=== PATIENT | male | born 1940 | race Caucasian/White ===

== ENCOUNTER 2022-01-16 06:59 | Day surgery (SDC) | payer BC ==
[~2022-01-16] VITALS: Ht 185.4 cm; Wt 88.5 kg
[2022-01-16] MEDS ORDERED: CLINDAMYCIN PHOS 600 MG/ D5W 50 ML PREMIX IV ONE (09:45)
[2022-01-16] MEDS ORDERED: CEFAZOLIN SOD 2 GM in D5W 50 ML IV ONE (09:45)
[2022-01-16] MEDS ORDERED: NS IRRIG SOLN 1000 ML IR ONE (12:35)
[2022-01-16] MEDS ORDERED: ROCURONIUM BROMIDE 10 MG/ML (ZEMURON) ONE (12:35)
[2022-01-16] MEDS ORDERED: SEVOFLURANE 15 MIN GAS INH ONE (12:35)
[2022-01-16] MEDS ORDERED: ETOMIDATE 20 MG/ 10 ML VIAL (AMIDATE) ONE (12:35)
[2022-01-16] MEDS ORDERED: LR 1,000 ML IV.SOLN IV ONE (12:35)
[2022-01-16] MEDS ORDERED: [UNRECOGNIZED DRUG - OTHER] INJ ONE (12:35)
[2022-01-16] MEDS ORDERED: SUCCINYLCHOLINE CHLORIDE 20 MG/ML(QUELICIN) ONE (12:35)
[2022-01-16] MEDS ORDERED: MIDAZOLAM HCL 2 MG/2 ML VIAL (VERSED) ONE (12:35)
[2022-01-16] MEDS ORDERED: GELATIN SPONGE 100 TP ONE (12:35)
[2022-01-16] MEDS ORDERED: OXYMETAZOLINE HCL 0.05% NASAL SPRAY NS ONE (12:35)
[2022-01-16] MEDS ORDERED: MUPIROCIN 2% TOPICAL OINTMENT 22 GM ONE (12:35)
[2022-01-16] MEDS ORDERED: ONDANSETRON HCL 4 MG/2 ML VIAL IVP PRN (13:30)
[2022-01-16] MEDS ORDERED: MORPHINE 4 MG INJ. 4 MG/ML VIAL IVP PRN (13:30)
[2022-01-16 14:45] VITALS: BP_SYST 102
== END 2022-01-16 16:10 | disposition home or self-care (01) ==
LOC: SDS 06:59 → SMU 07:00 → SDS 16:10
PROVIDERS: ATTEND Otolaryngology
DX: R04.0 Epistaxis (principal); I10 Essential (primary) hypertension; I48.91 Unspecified atrial fibrillation; Z95.810 Presence of automatic (implantable) cardiac defibrillator; Z88.6 Allergy status to analgesic agent; Z88.8 Allergy status to other drugs, medicaments and biological substances; Z79.899 Other long term (current) drug therapy; Z20.822 Contact with and (suspected) exposure to COVID-19
CPT/HCPCS: 31238; 36415; 71046; 87426; J0330; J3465; J3490 ×2; J7120; J0690; J7060

== ENCOUNTER 2022-05-01 08:00 | Outpatient (CLI) | payer BC ==
[~2022-05-01] VITALS: Ht 185.4 cm; Wt 89.8 kg
== END 2022-05-01 12:00 | disposition home or self-care (01) ==
LOC: SLB 08:00 → EDSTATUS 09:30 → SLB 12:00
PROVIDERS: ATTEND Otolaryngology
DX: R04.0 Epistaxis (principal); R49.0 Dysphonia; Z20.822 Contact with and (suspected) exposure to COVID-19; Z53.8 Procedure and treatment not carried out for other reasons
CPT/HCPCS: 36415 ×2; 87426; U0003

== ENCOUNTER 2022-06-19 06:13 | Day surgery (SDC) | payer BC ==
[~2022-06-19] VITALS: Ht 185.4 cm; Wt 90.7 kg
[2022-06-19] MEDS ORDERED: ROCURONIUM BROMIDE 10 MG/ML (ZEMURON) IV ONE (08:30)
[2022-06-19] MEDS ORDERED: PROPOFOL 200MG/ 20ML VIAL (DIPRIVAN) IV ONE (08:30)
[2022-06-19] MEDS ORDERED: LIDOCAINE 2%, 20 ML MDV INJ ONE (08:30)
[2022-06-19] MEDS ORDERED: BACITRACIN ZINC 15 GM TOPICAL OINTMENT TP ONE (08:30)
[2022-06-19] MEDS ORDERED: ePHEDrine sulfate 50 MG/ML VIAL IVP ONE (08:30)
[2022-06-19] MEDS ORDERED: ONDANSETRON HCL 4 MG/2 ML VIAL IVP ONE (08:30)
[2022-06-19] MEDS ORDERED: fentaNYL CITRATE/PF 100 MCG/2 ML AMP IVP ONE (08:30)
[2022-06-19] MEDS ORDERED: SEVOFLURANE 15 MIN GAS INH ONE (08:30)
[2022-06-19] MEDS ORDERED: WATER FOR IRRIGATION,STERILE 1,000 ML IRRIG.SOLN IR ONE (08:30)
[2022-06-19] MEDS ORDERED: NS IRRIG SOLN 1000 ML IR ONE (08:30)
[2022-06-19] MEDS ORDERED: SUGAMMADEX SODIUM 200 MG/2 ML VIAL IV ONE (08:30)
[2022-06-19] MEDS ORDERED: LR 1,000 ML IV.SOLN IV ONE (08:30)
[2022-06-19] MEDS ORDERED: MEPERIDINE HCL/PF 25 MG/ML DISP.SYRIN IVP PRN (10:30)
[2022-06-19] MEDS ORDERED: ONDANSETRON HCL 4 MG/2 ML VIAL IVP PRN (10:30)
[2022-06-19 12:47] VITALS: BP_SYST 104
== END 2022-06-19 12:00 | disposition home or self-care (01) ==
LOC: SDS 06:13 → SMU 06:17 → SDS 12:00
PROVIDERS: ATTEND Otolaryngology
DX: H65.492 Other chronic nonsuppurative otitis media, left ear (principal); R49.0 Dysphonia; I12.9 Hypertensive chronic kidney disease with stage 1 through stage 4 chronic kidney disease, or unspecified chronic kidney disease; N18.9 Chronic kidney disease, unspecified; I48.91 Unspecified atrial fibrillation; G47.33 Obstructive sleep apnea (adult) (pediatric); Z88.1 Allergy status to other antibiotic agents; Z88.5 Allergy status to narcotic agent; Z79.899 Other long term (current) drug therapy; Z20.822 Contact with and (suspected) exposure to COVID-19
CPT/HCPCS: 87426; 36415; 31571; 69436; J3490; J2001; J2405; J2704; J3010; J7120; L8607

== ENCOUNTER → 2022-09-23 | Day surgery (SDC) | payer BC ==
[~2022-09-23] VITALS: Ht 185.4 cm; Wt 94.3 kg
[~2022-09-23] MED LIST: ACET325T PO; ACETAMINOPHEN 325 MG TABLET PO PRN; ATORVASTATIN 10 MG TABLET PO SCH; CARV12.548 PO; CLINDAMYCIN PHOS 600 MG/ D5W 50 ML PREMIX IV ONE; DAPA10TA PO; LIDOCAINE 2%, 20 ML MDV ONE; LR 1,000 ML IV.SOLN IV ONE; NON-FORMULARY MEDICATION (Dapagliflozin Propanediol (Farxiga) 10 MG) PO SCH; NON-FORMULARY MEDICATION (Pravastatin Sodium 1 TAB) PO SCH; NON-FORMULARY MEDICATION (Sacubitril/Valsartan (Entresto 49 mg-51 mg Tablet) 1 EACH) PO SCH; NS 1000 ML IV.SOLN IV ONE; NS IRRIG SOLN 1000 ML IR ONE; PHENYLEPHRINE HCL 10 MG/ML VIAL (NEOSYNEPHRINE) ONE; PRAV40TA63 PO; PROPOFOL 200MG/ 20ML VIAL (DIPRIVAN) IV ONE; SACU1TAB7 PO; SEVOFLURANE 15 MIN GAS INH ONE; SPIR25TA6 PO; SPIRONOLACTONE 25 MG TABLET (ALDACTONE) PO SCH; SUCCINYLCHOLINE CHLORIDE 20 MG/ML(QUELICIN) ONE; ZOLP5TAB2 PO; ZOLPIDEM TARTRATE 5 MG TABLET PO PRN
[2022-09-23 10:11] LABS: BASOPHILS # (AUTO) 0.1 K/uL (0.0-0.2); EOSINOPHILS # (AUTO) 0.1 K/uL (0.0-0.4); EOSINOPHILS % (AUTO) 2.1 % (0.0-4.0); HEMATOCRIT 27.6 % (36-54); HEMOGLOBIN 8.8 g/dL (14.0-18.0); LYMPHOCYTES % (AUTO) 17.4 % (20.5-51.5); MEAN CORPUSCULAR HEMOGLOBIN 29 pg (27-31); MEAN CORPUSCULAR HGB CONC 32 % (32-36); MEAN CORPUSCULAR VOLUME 90 fL (79.0-98.0); MONOCYTES # (AUTO) 0.7 K/uL (0.0-1.0); MONOCYTES % (AUTO) 11.3 % (1.7-9.3); NEUTROPHILS % (AUTO) 68.2 % (40.0-70.0); PLATELET COUNT (AUTO) 195 K/uL (130-430); RED BLOOD CELL COUNT(AUTO) 3.07 MIL/uL (4.2-6.2); RED CELL DISTRIBUTION WIDTH 17.5 % (9.0-15.0); WHITE BLOOD COUNT (AUTO) 5.9 K/uL (4.8-10.8)
[2022-09-23 16:21] VITALS: BP_SYST 121
[2022-09-23 20:00] VITALS: BP_SYST 100
[2022-09-23] MEDS: CARVEDILOL 12.5 MG TABLET (COREG) PO SCH (22:01)
[2022-09-23] MEDS: SACUBITRIL/VALSARTAN 24 MG-26 MG 1 TABLET PO SCH (22:02)
[2022-09-24] VITALS: BP_SYST 67
[2022-09-24 00:43] VITALS: BP_SYST 92
[2022-09-24 08:38] VITALS: BP_SYST 80; BP_SYST 81
[2022-09-24] MEDS: SACUBITRIL/VALSARTAN 24 MG-26 MG 1 TABLET PO SCH (08:48)
[2022-09-24] MEDS: CARVEDILOL 12.5 MG TABLET (COREG) PO SCH (08:48)
[2022-09-24 10:30] VITALS: BP_SYST 103
== END | disposition home or self-care (01) ==
LOC: SDS 09:32 → UNDOADMIN 09:44 → SMU 09:44 → SDS 21:00
PROVIDERS: ATTEND Otolaryngology
DX: R04.0 Epistaxis (principal); I78.0 Hereditary hemorrhagic telangiectasia; I10 Essential (primary) hypertension; G47.33 Obstructive sleep apnea (adult) (pediatric); H65.492 Other chronic nonsuppurative otitis media, left ear; Z79.899 Other long term (current) drug therapy; Z20.822 Contact with and (suspected) exposure to COVID-19
CPT/HCPCS: 31238; 85025; 36415; 93005; 71046; 87426; J3490; J1956; J2001; J2370; J2704; J0330; J7120; J7030